=== PATIENT | female | born 1975 | race Two or more races ===

== ENCOUNTER → 2024-12-29 | Emergency (ER) | payer BC ==
[~2024-12-29] VITALS: Ht 160 cm; Wt 81.6 kg
[~2024-12-29] MED LIST: 0.9 % SODIUM CHLORIDE 1,000 ML IV STA; ESTRADIOL1 EAC2 TD; FAMOTIDINE/PF 20 MG in 0.9 % SODIUM CHLORIDE 8 ML IV PUSH STA; FAMOtidine 200mg/20ml VIAL ONE; LIPITOR20 MG PO; MOBIC7.5 MG PO; ONDANSETRON HCL 2 MG/ML VIAL IV STA; ONDANSETRON HCL 2 MG/ML VIAL ONE; SYNTHROID75 MCG PO
[2024-12-29 09:44] LABS: BASO % 0.2 % (0.1-1.2); EOS # 0.00 (0.04-0.54); EOS % 0.0 % (0.7-7.0); LYMPH # 0.46 (1.18-3.74); LYMPH % 4.3 % (19.3-53.1); MEAN PLATELET VOLUME 9.80 fl (9.4-12.4); MONO # 0.27 (0.24-0.82); MONO % 2.5 % (4.7-12.5); NEUT # 9.98 (1.56-6.13); NEUT % 92.7 % (34.0-71.1); RED CELL DISTRIBUTION WIDTH 12.6 % (11.6-14.4)
[2024-12-29 10:12] LABS: BUN CREA RATIO 19.0 (7.0-25.0); CREATININE SERUM 0.84 mg/dL (0.55-1.02); GFR 71.77; GLUCOSE FASTING 118.0 mg/dL (65-100); OSMOLALITY SERUM 284.0 MOSM/KG (275-295)
[2024-12-29 11:31] LABS: URINE BACTERIA 626.4 uL (0.0-1933); URINE EPITHELIAL CELLS 26.4 uL (0.0-38.8); URINE RBC 106.6 uL (0.0-20.8); URINE WBC 10.7 uL (0.0-23.2)
[2024-12-29 11:40] LABS: URINE APPEARANCE Clear; URINE BILIRRUBIN Negative (NEGATIVE); URINE BLOOD Moderate; URINE COLOR Yellow; URINE GLUCOSE Negative (NEGATIVE); URINE KETONE 15 (NEGATIVE); URINE LEUKOCYTE Negative; URINE NITRATE Negative; URINE PROTEIN Trace (NEGATIVE); URINE UROBILINOGEN 0.2 E.U./dl
[2024-12-29 12:46] LABS: URINE CAST 0.73 uL (0.0-1.40)
[2024-12-29 12:47] LABS: URINE MUCUS MODERATE
== END | disposition home or self-care (01) ==
LOC: ER 08:42
PROVIDERS: Emergency Medicine
DX: K52.89 Other specified noninfective gastroenteritis and colitis (principal); R11.10 Vomiting, unspecified; I10 Essential (primary) hypertension; E03.8 Other specified hypothyroidism; Z88.0 Allergy status to penicillin; Z88.5 Allergy status to narcotic agent